=== PATIENT | female | born 1970 | race Caucasian/White ===

== ENCOUNTER 2019-10-01 10:42 | Emergency (ER) | payer BC ==
[~2019-10-01] VITALS: Ht 157.5 cm; Wt 150.6 kg
[~2019-10-01 10:42] MED LIST: ATORVASTATIN CA10 MG PO; BYDUREON P2 MG/0.65 SQ; FLONASE ALLERG9.9 ML NS; GLIPIZIDE ER2.5 MG PO; HYDROCHLOROTHIA25 MG PO; LASIX20 MG PO; MAG-OXIDE400 MG PO; METFORMIN HCL1000 MG PO; POTASSIUM CHLO20 ME2 PO; POTASSIUM99 M1 PO; SERTRALINE HCL50 MG PO; SUPER B COMPLE150 MG PO; VITAMIN D22000 UNIT PO; VITAMIN D250000 UNIT PO; VITAMIN E1000 UNI2 PO
[2019-10-01] MEDS ORDERED: DULOXETINE HCL60 MG PO (11:25)
[2019-10-01] MEDS ORDERED: LISINOPRIL5 MG PO (11:25)
[2019-10-01] MEDS ORDERED: TRULICITY1.5 MG/0.5 SQ (11:26)
[2019-10-01] MEDS ORDERED: CLINDAMYCIN HC300 MG PO (11:41)
== END 2019-10-01 11:59 | disposition home or self-care (01) ==
LOC: ED 10:42
DX: L03.311 Cellulitis of abdominal wall (principal); E11.9 Type 2 diabetes mellitus without complications; E78.00 Pure hypercholesterolemia, unspecified; Z88.2 Allergy status to sulfonamides; Z79.899 Other long term (current) drug therapy
CPT/HCPCS: 99283

== ENCOUNTER 2020-05-02 14:48 | Inpatient (IN) | payer BC ==
[~2020-05-02] VITALS: Ht 157.5 cm; Wt 145.6 kg
[~2020-05-02 14:48] MED LIST changes: +CLINDAMYCIN HC300 MG PO; +DULOXETINE HCL60 MG PO; +LISINOPRIL5 MG PO; +TRULICITY1.5 MG/0.5 SQ; +VITAMIN D210 MCG PO
[2020-05-02] MEDS ORDERED: LANTUS SOL100 UNIT/1 SUB-Q (15:43)
[2020-05-02] MEDS ORDERED: FUROSEMIDE40 MG PO (15:43)
--- NOTE | 2020-05-02 20:58 | NUR ---
PT ARRIVED TO FLOOR VIA STRETCHER PT ABLE TO STAND AND TRANSFER INTO BED. ADMISSION PROCESS COMPLETE. PT VERY TALKATIVE. PT ORIENTED TO ROOM AND POC FOR THIS SHIFT. PRIMARY RN IN ROOM BRIEFLY, FLUSHED IV LINES X 2, WNL. PT TOLERATED WELL. PT DENIES FURTHER NEEDS, CONCERNS, OR QUESTIONS AT THIS TIME. CALL LIGHT IN REACH. WHITE BOARD UDPATED.
--- NOTE | 2020-05-02 22:20 | NUR ---
PATIENT ATE FOUR LARGE PIECES OF CHEESE AND DRANK A GLASS OF WATER SO SHE COULD TAKE HER PO K+. BLOOD SUGAR WAS 183 SO 5UNITS HUMALOG AND 20UNITS LANTUS GIVEN SQ. PATIENT HAS A FULL BODY RASH, BUT RLE IS MORE SWOLLEN, REDDEND AND WARM. ALL PM MEDS GIVEN ALREADY, LUNGS ARE CLEAR, VS STABLE, PATIENT RESTING AT TIS TIME, CALL LIGHT IN REACH. IV'S INTACT AND FLUSH WELL.
--- NOTE | 2020-05-03 00:23 | NUR ---
PATIENT UP TO THE BATHROOM AND BACK TO BED AFTER VOIDING. CALL LIGHT IN REACH. NO OTHER NEEDS AT THIS TIME.
--- NOTE | 2020-05-03 02:02 | NUR ---
PATIENT RESTING QUIETLY SUPINE, EYES CLOSED, RESPIRATIONS REGULAR AND EVEN, CALL LIGHT IN REACH.
--- NOTE | 2020-05-03 02:10 | NUR ---
PATIENT'S VITAL SIGNS ARE STABLE AND PATIENT IS GOING BACK TO SLEEP. CALL LIGHT IN REACH.
--- NOTE | 2020-05-03 03:20 | NUR ---
CALL LIGHT ANSWERED. SBA TO THE BATHROOM. PATIENT IS BACK IN BED. ICE WATER REFILLED. NO OTHER NEEDS AT THIS TIME. CALL LIGHT IN REACH.
--- NOTE | 2020-05-03 03:53 | NUR ---
PATIENT WAS RESTING QUIETLY UNTIL I CAME IN TO DO ASSESSMENT AND HANG NEW IV FLUIDS AND ANTIBIOTCS. PATIENT IS TIRED AND JUST WANTS TO TRY AND GET SOME SLEEP. CALL LIGHT IS IN REACH AND PATIENT HAS NO NEEDS AT THIS TIME.
--- NOTE | 2020-05-03 06:00 | NUR ---
PATIENT HAS BEEN VERY TIRED THROUGH THE NIGHT AND FULL BODY RASH HAS BEEN RESOLVING SOME WHAT FROM HER KEFLEX REACTION. 1+ EDEMA STILL PRESENT IN RLE AND SOME GENERALIZED LLE SWELLING. PATIENT HAS BEEN GETTING UP WITH 1PSBA TO THE BATHROOM AND IS VOIDING WELL. BOTH AC IV'S AR PATENT AND FLUSH WELL. IV CONTINUES INFUSING AT 150MLS HOUR. PATIENT RESTING AT THIS TIME CALL LIGHT IN REACH.
[2020-05-03] MEDS ORDERED: CEPHALEXIN500 MG PO (07:04)
[2020-05-03] MEDS ORDERED: VITAMIN D350 MCG PO (07:26)
--- NOTE | 2020-05-03 07:42 | NUR ---
IV pump alarming distal occlusion. States some soreness to skin of right lower extremity. Assessment completed. Denies other needs at this time. IV sites WNL. Call light in reach, bed rails up X2.
--- NOTE | 2020-05-03 10:11 | NUR ---
Panus fold cleansed with soap and water, dried and Nystatin applied. Dry pillow cases placed in fold to absorb moisture. Patient denies other needs at this time. IV site to L hand infusing fluids without difficulty. Call light in reach, bed rails up X2.
--- NOTE | 2020-05-03 15:21 | NUR ---
Assessment completed. Ambulates to bathroom.
--- NOTE | 2020-05-03 16:16 | NUR ---
PATIENT UP IN HER CHAIR.
--- NOTE | 2020-05-03 16:17 | NUR ---
DID BLOOD SUGAR CHECK ON PATIENT BEFORE HER BREAKFAST ALSO SHE ORDERED HER BREAKFAST.
--- NOTE | 2020-05-03 19:24 | NUR ---
REPORT RECEIVED FROM DAY SHIFT RN. PT BACK TO BED FROM BR WITH SBA. GAIT STEADY. ALFONSO WELL. ALERT AND ORIENTED. IVF INFUSING. DENIES NEEDS AT THIS TIME. WHITE BOARD UPDATED. CALL LIGHT IN REACH.
--- NOTE | 2020-05-03 21:40 | NUR ---
EVENING ASSESSMENT COMPLETE. SCHEDULED MEDS ADMINISTERED PER EMAR. PT DENIES PAIN OR NAUSEA. RASH NOTED OVER WHOLE BODY. PANNUS AREA CLEANED, DRIED, AND NYSTATIN POWDER PLACED. PT UP TO BR WITH SBA TO VOID, GAIT STEADY. BACK TO BED, ALFONSO WELL. PT DENIES QUESTIONS OR CONCERNS. CALL LIGTH IN REACH.
--- NOTE | 2020-05-04 00:12 | NUR ---
SBA PATIENT TO THE BATHROOM. PATIENT IS BACK IN BED. THIS GERONTOLOGY AIDE ASSISTED RN TIFFANY CLEANED PATIENT'S LOWER ABDOMEN.
--- NOTE | 2020-05-04 02:51 | NUR ---
PT RESTING IN BED WITH EYES CLOSED. RESPIRATIONS EVEN AND UNLABORED. IVF INFUSING. CALL LIGHT IN REACH.
--- NOTE | 2020-05-04 03:26 | NUR ---
ASSISTED PT TO BATHROOM AND BACK. PT BACK IN BED. PT HAS NO NEEDS AT THIS TIME.
--- NOTE | 2020-05-04 04:47 | NUR ---
IV ABX INFUSING PER ORDER. PT DENIES PAIN OR NAUSEA. ASSESSMENT COMPLETE. PT DENIES NEEDS AT THIS TIME. CALL LIGHT IN REACH.
--- NOTE | 2020-05-04 05:57 | NUR ---
PT RESTING IN BED. VS AND I&O COMPLETE. IV ABX INFUSING. PT DENIES FURTHER NEEDS. CALL LIGHT IN REACH.
--- NOTE | 2020-05-04 07:40 | NUR ---
SHIFT REPORT FROM NURSE ALLEN. PT SLEEPING IN BED BUT AWOKE TO NURSES IN ROOM. PT ASSISTED UP TO TOILET. ENCOURAGED TO USE CALL LIGHT WHEN FINISHED.
--- NOTE | 2020-05-04 09:00 | NUR ---
PATIENT WITH STAFF. WILL RETURN LATER.
--- NOTE | 2020-05-04 09:10 | NUR ---
ASSESSMENT COMPLETE. PT REPORTS MINIMAL PAIN. SKIN PEELING, BLISTERED UNDER L BREAST. NYSTATIN POWDER APPLIED AFTER CLEANING UNDER PANUS. PT IS TALKATIVE AND ALERT AND IN GOOD SPIRITS DESPITE OVERALL INFLAMMATION. SKIN PEELING NOTED BEHIND RIGHT KNEE.
--- NOTE | 2020-05-04 10:54 | NUR ---
IV PUMP ALARMING. IV IN LEFT HAND WAS SLIGHTLY KINKED. ABLE TO REDIRECT AND FLUSH WITH 10ML NS. IVF INFUSING WNL.
--- NOTE | 2020-05-04 12:45 | NUR ---
SPOKE WITH PATIENT IN ROOM. PATIENT IS UP IN CHAIR EATING LUNCH WITHOUT ASSIST. PATIENT STATES SHE IS AMBULATORY USING NO DME. SHE DOES HAVE OXYGEN AT HOME SHE USES AT NIGHT WITH BIPAP. PATIENT DRIVES. SHE DENIES PROBLEMS GETTING TO APPOINTMENTS. SHE DOES STATES SHE IS CHANGING PCP TO DR LOAIZA AND NEW PATIENT APPT IS IN [place]. SHE LIVES WITH HER MOTHER. SHE PLANS AND FEELS SAFE TO RETURN THERE. DENIES WORRY ABOUT AFFORDING MEDS, FOOD OR UTILITIES. CM WILL FOLLOW NEEDED.
--- NOTE | 2020-05-04 13:10 | NUR ---
CHECKED IN ON PT. PT RETURNED TO BED AFTER LUNCH. RESTING PEACEFULLY. PT DENIES NEEDS AT THIS TIME
--- NOTE | 2020-05-04 13:32 | NUR ---
PT ALERT, ORIENTED AND SITTING IN CHAIR. PT STTED SHE FEELS THAT SHE IS HERE BECAUSE OF A REACTION TO MEDS. PT FEELS SLIGHT IMPROVEMENT, THANKED ME FOR COMING IN. JM [email or web address].POST WILL FOLLOW
--- NOTE | 2020-05-04 18:31 | NUR ---
ASSISTED PT BACK TO BED. ASSESSMENT COMPLETE. BLISTERS UNDER LEFT BREAST STILL PRESENT. SUPERFICIAL SKIN ON BACK OF RIGHT KNEE SLOUGHED. PT REPORTS MINIMAL PAIN. NO FURTHER NEEDS AT THIS TIME. CALL LIGHT WITHIN REACH
--- NOTE | 2020-05-04 19:15 | NUR ---
REPORT RECEIVED FROM DAY SHIFT RN. PT LYING IN BED ALERT AND ORIENTED. DENIES NEEDS AT THIS TIME. WHITE BOARD UPDATED. CALL LIGHT IN REACH.
--- NOTE | 2020-05-04 22:00 | NUR ---
EVENING ASSESSMENT COMPLETE. SCHEDULED MEDS ADMINISTERED PER EMAR. PT DENIES PAIN OR NAUSEA. UP TO BR WITH SBA TO BR. BACK TO BED, ALFONSO WELL. PANNUS AREA AND UNDER BREASTS CLEANED, DRIED, AND NYSTATIN APPLIED. CLUSTER OF BLISTERS NOTED ON THE INSIDE OF RIGHT THIGH. OPEN AREA BEHIND RIGHT KNEE NOTED, POSSIBLY FROM A BLISTER THAT HAD POPPED. WEEPING BLISTERS ALSO NOTED ON LEFT SIDE. IVF SL. NO QUESTIONS OR CONCERNS AT THIS TIME. CALL LIGHT IN REACH.
--- NOTE | 2020-05-04 23:50 | NUR ---
ASSISTED RN TIFFANY CLEAN PATIENT'S UNDER BREAST AND LOWER ABDOMEN.
--- NOTE | 2020-05-05 04:20 | NUR ---
PT UP TO BR WITH SBA TO VOID. GAIT STEADY. BACK TO BED, ALFONSO WELL. BLISTERS NOTED ON INSIDE OF LEFT THIGH WELL RIGHT, BOTH SIDES OOZING. IV ABX INFUSING PER ORDER. SL IN LEFT AC DC'D PER PT REQUEST. TIP INTACT.
--- NOTE | 2020-05-05 06:53 | NUR ---
PT REPORTS PAIN IN LEFT HAND WITH INFUSION. LEFT HAND SLIGHTLY SWOLLEN. IV DOES NOT APPEAR INFILTRATED BUT IS NO LONGER PATENT. IV DC'D WNL. TIP INTACT. LEFT HAND ELEVATED ON PILLOWS AND WRAPPED IN WARM BLANKET.
--- NOTE | 2020-05-05 07:20 | NUR ---
PT RESTING IN BED ALERT, REPORTS IV PAIN AT LEFT HAND WILL PLAN TO ROTATE IV SITES THIS AM.
--- NOTE | 2020-05-05 07:45 | NUR ---
PATIENT RESTING IN BED. RN IN ROOM. WITHE BOARD UPDATED. PATIENT'S HANDS AND FACE WASHED. CALL LIGHT WITHIN REACH. NO OTHER NEEDS AT THIS TIME
--- NOTE | 2020-05-05 09:08 | NUR ---
PATIENT RESTING IN BED. VITAL SIGNS AND I&O DONE. CALL LIGHT WITHIN REACH. NO OTHER NEEDS AT THIS TIME
--- NOTE | 2020-05-05 09:35 | NUR ---
PT IV CHANGED OUT BY ELAINE MOBLEY, PT THEN UP TO BATHROOM, THEN UP TO RECLINER FOR BREAKFAST. PT NOW BACK TO BED AT THIS TIME READING ON TABLET.
--- NOTE | 2020-05-05 10:00 | NUR ---
In and spoke with Dali. She states she feels safe going home. Her mother will come pick her up. She denies other needs.
--- NOTE | 2020-05-05 10:27 | NUR ---
PATIENT WAS MOSTLY INDEPENDENT IN SHOWER. FRESH LINEN AND GOWN GIVEN. FULLY DRIED AND POWDER APPLIED BY LEANDRA SAEZ. PATIENT NOW IN BED WATCHING TV. CALL LIGHT WITHIN REACH. NO FURTHER NEEDS AT THIS TIME.
--- NOTE | 2020-05-05 10:41 | NUR ---
PT SHOWERED WITH 'S APPROVAL, NYSTATIN POWDER APPLIED AFTER, PT BACK TO BED NOW.
--- NOTE | 2020-05-05 12:55 | NUR ---
ROUNDED FOR PT ASSESSMENT, HE FEELS PT NEEDS LONGER INPATIENT TREATMENT. PT RESTING IN BED WATCHING A PROGRAM ON HER TABLET. NO DISTRESS, NO REQUESTS AT THIS TIME.
--- NOTE | 2020-05-05 13:14 | NUR ---
PT ALERT, ORIENTED AND RESTING IN BED WATCHING TV. NOT MUCH SLEEP THOUGH. PT IS USED TO SLEEPING IN A CHAIR AT HOME. FEELS SOME IMPROVMENT IS HAPPENING. PT HOPES TO DC TODAY, GAVE BLESSING AND WILL FOLLOW
--- NOTE | 2020-05-05 14:11 | NUR ---
PATIENT RESTING IN BED. VITAL SIGNS AND I&O DONE. CALL LIGHT WITHIN REACH. NO OTHER NEEDS AT THIS TIME
--- NOTE | 2020-05-05 16:50 | NUR ---
PT UP IN CHAIR ON TELEPHONE, NO DISTRESS NOTED. REFILLED ICE WATER, SUPPER MED PASS COMPLETE NOW. VANCO INFUSING.
--- NOTE | 2020-05-05 19:39 | NUR ---
REPORT RECEIVED FROM DAY SHIFT RN. PT LYING IN BED ALERT AND ORIENTED WATCHING TV. DENIES NEEDS AT THIS TIME. WHITE BOARD UPDATED. CALL LIGHT IN REACH.
--- NOTE | 2020-05-05 21:25 | NUR ---
ASSISTED LEANDRA ALLEN. CLEANED PATIENT'S UNDERBREAST AND LOWER ABDOMEN.
--- NOTE | 2020-05-05 21:50 | NUR ---
EVENING ASSESSMENT COMPLETE. SCHEDULED MEDS ADMINISTERED PER EMAR. PT DENIES PAIN OR NAUSEA. BLISTERS ON BILAT INNER THIGHS WEEPING. PANNUS AREA AND UNDER BREASTS CLEANED, DRIED, AND NYSTATIN POWDER APPLIED. VS AND I&O COMPLETE. NO FURTHER NEEDS AT THIS TIME. CALL LIGHT IN REACH.
--- NOTE | 2020-05-06 00:22 | NUR ---
PT RESTING IN BED WITH EYES CLOSED, NAD.
--- NOTE | 2020-05-06 02:45 | NUR ---
PT RESTING IN BED WITH EYES CLOSED. RESPIRATIONS EVEN AND UNLABORED.
--- NOTE | 2020-05-06 05:10 | NUR ---
IV FLUSHED AND PATENT. ABX INFUSING PER ORDER. UP TO BR WITH MINIMAL SBA. GAIT STEADY. ASSISTED WITH SANJAY CARE. BACK TO BED, ALFONSO WELL. ASSESSMENT COMPLETE. FRESH WATER PROVIDED. NO FURTHER NEEDS. CALL LIGHT IN REACH.
--- NOTE | 2020-05-06 06:55 | NUR ---
BEDSIDE HANDOFF REPORT RECEIVED FROM FRAME MAKER RN. PT SLEEPING, LEFT UNDSITURBED.
--- NOTE | 2020-05-06 08:00 | NUR ---
PATIENT SLEEPING. WHITE BOARD UPDATED. CALL LIGHT WITHIN REACH. NO OTHER NEEDS AT THIS TIME
--- NOTE | 2020-05-06 09:23 | NUR ---
PATIENT SITTING UP IN CHAIR. VITAL SIGNS AND I&O DONE. ICE WATER GIVEN. CALL LIGHT WITHIN REACH. NO OTHER NEEDS AT THIS TIME
--- NOTE | 2020-05-06 09:30 | NUR ---
Spoke with Dali, feels better, but rash continues. No change in dc plan.
--- NOTE | 2020-05-06 09:50 | NUR ---
PT IN BATHROOM, VOIDED AND HAD SOFT BM, ASSISTED WITH PERICARE. PT ALERT AND ORIENTED. PT ON ROOM AIR, LUNG SOUNDS CLEAR, DENIES SOB. PT WITH DIFFUSE RASH, ONPEN BLISTERS ON POSTERIOR RIGHT KNEE, LEFT AND RIGHT INNER THIGHS. PT TOLERATED BREAKFAST, GOOD APPETITE, SS INSULIN HELD. IV SALINE LCOKED. PT WITH EDEMA TO RIGHT LEG 2+, LEFT LEG 1+. PT PROVIDED WITH FREH WATER, DENIES OTHER NEEDS AT THIS TIME.
[2020-05-06] MEDS ORDERED: DOXYCYCLINE HY100 MG PO (11:49)
[2020-05-06] MEDS ORDERED: LANTUS SOL100 UNIT/1 SUB-Q (11:50)
[2020-05-06] MEDS ORDERED: PREDNISONE20 MG PO (11:51)
--- NOTE | 2020-05-06 12:00 | NUR ---
PT GIVEN 3 UNITS SS HUMALOG FOR BLOOD GLUCOSE 157. PT SITTING IN CHAIR, EATING LUNCH. PT ANTICIPATING DC.
--- NOTE | 2020-05-06 13:25 | NUR ---
Vancomycin trough level = 18.3. Change dose to 1750mg IV q 8 hrs to avoid overshooting goal trough level
--- NOTE | 2020-05-06 13:31 | NUR ---
DISCHARGE INSTRUCTIONS COMPLETED WITH PT. VSS. IV CATH RMEOVED. ALLEVYN DRESSING APPLIED TO RIGHT INNER THIGH BLISTER SITE TO MANAGE DRAIANGE, PT SENT HOME WITH DRESSINGS AND DISCUSSED WOUND CARE. PT GETTING DRESSED AND WILL CALL WHEN READY FOR DISCHARGE.
== END 2020-05-06 13:55 | disposition home or self-care (01) | DRG 872 ==
LOC: ED 14:48 → MS 18:36
PROVIDERS: ADMIT Internal Medicine; ATTEND Internal Medicine
DX: A41.9 Sepsis, unspecified organism (principal); L03.115 Cellulitis of right lower limb; Z68.43 Body mass index [BMI] 50.0-59.9, adult; I50.32 Chronic diastolic (congestive) heart failure; R65.20 Severe sepsis without septic shock; Z20.828 Contact with and (suspected) exposure to other viral communicable diseases; E11.9 Type 2 diabetes mellitus without complications; E66.9 Obesity, unspecified; E78.5 Hyperlipidemia, unspecified; I11.0 Hypertensive heart disease with heart failure; G47.33 Obstructive sleep apnea (adult) (pediatric); F39 Unspecified mood [affective] disorder; L27.0 Generalized skin eruption due to drugs and medicaments taken internally; T36.1X5A Adverse effect of cephalosporins and other beta-lactam antibiotics, initial encounter; Z88.2 Allergy status to sulfonamides; Z88.1 Allergy status to other antibiotic agents; Z79.899 Other long term (current) drug therapy; Z79.4 Long term (current) use of insulin
CPT/HCPCS: 36415; 80048; 80053; 80202; 83036; 83605; 83735; 85007; 85025; 85032; 87040; 96365; 96366; 99285-25; C9803; J1650; J1815; J3370; J3475; J7030; J7060; J7121; J7512; U0003

== ENCOUNTER 2020-10-09 22:34 | Emergency (ER) | payer SELFPAY ==
[~2020-10-09] VITALS: Ht 157.5 cm; Wt 140.6 kg
[~2020-10-09 22:34] MED LIST changes: +CEPHALEXIN500 MG PO; +DOXYCYCLINE HY100 MG PO; +FUROSEMIDE40 MG PO; +LANTUS SOL100 UNIT/1 SUB-Q; +PREDNISONE20 MG PO; +VITAMIN D350 MCG PO
--- OUTSIDE RECORDS SUMMARY | 2020-10-09 22:40 | XMS ---
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 Jamar has no Care Guidelines for this patient. [facility] VISIT COUNT (12 MO.) 2 [facility] TOTAL 2 NOTE: Visits indicate total known visits. ED/C VISIT TRACKING (12 MO.) 10/09/2020 22:35 [facility] TYPE: Emergency COMPLAINT: - PAIN 05/02/2020 14:50 [facility] TYPE: Emergency COMPLAINT: - MEDICATION REACTION INPATIENT VISIT TRACKING (12 MO.) 05/02/2020 18:36 [facility] TYPE: Medical Surgical COMPLAINT: - SEVERE SEPSIS DIAGNOSES: - Type 2 diabetes mellitus without complications - Unspecified mood [affective] disorder - Obstructive sleep apnea (adult) (pediatric) - Adverse effect of cephalosporins and other beta-lactam antibiotics, initial encounter - Type 2 diabetes mellitus without complications - Allergy status to other antibiotic agents - Body mass index [BMI] 50.0-59.9, adult - Allergy status to sulfonamides - Severe sepsis without septic shock - Contact with and (suspected) exposure to other viral communicable diseases - Hypertensive heart disease with heart failure - Allergy status to other antibiotic agents - Chronic diastolic (congestive) heart failure - Allergy status to sulfonamides - Body mass index [BMI] 50.0-59.9, adult - oil heaterman (current) use of insulin - Cellulitis of right lower limb - Chronic diastolic (congestive) heart failure - Adverse effect of cephalosporins and other beta-lactam antibiotics, initial encounter - Other senior care (current) drug therapy - Hyperlipidemia, unspecified - Body mass index [BMI] 50.0-59.9, adult - Unspecified mood [affective] disorder - Allergy status to other antibiotic agents - Generalized skin eruption due to drugs and medicaments taken internally - Contact with and (suspected) exposure to other viral communicable diseases - Hyperlipidemia, unspecified - Severe sepsis without septic shock - oil heaterman (current) use of insulin - Obesity, unspecified - Obesity, unspecified - Obstructive sleep apnea (adult) (pediatric) - Allergy status to sulfonamides - Generalized skin eruption due to drugs and medicaments taken internally - Sepsis, unspecified organism - Hypertensive heart disease with heart failure - Cellulitis of right lower limb - Other exterminator helper termite (current) drug therapy [email or web address]
[2020-10-10] MEDS ORDERED: DOXYCYCLINE HY100 MG PO (00:47)
== END 2020-10-10 01:05 | disposition home or self-care (01) ==
LOC: ED 22:34
DX: L30.4 Erythema intertrigo (principal); L03.311 Cellulitis of abdominal wall; E11.9 Type 2 diabetes mellitus without complications; E78.00 Pure hypercholesterolemia, unspecified; I10 Essential (primary) hypertension; Z88.1 Allergy status to other antibiotic agents; Z88.2 Allergy status to sulfonamides; Z79.4 Long term (current) use of insulin; Z79.899 Other long term (current) drug therapy
CPT/HCPCS: 80053; 85025; 99283

== ENCOUNTER 2021-05-28 11:33 | Emergency (ER) | payer OTHER ==
[~2021-05-28] VITALS: Ht 157.5 cm; Wt 140.6 kg
[2021-05-28] MEDS ORDERED: JARDIANCE10 MG PO (13:31)
[2021-05-28] MEDS ORDERED: HYDROCODON-ACE1 EA11 PO (16:16)
== END 2021-05-28 17:07 | disposition home or self-care (01) ==
LOC: ED 11:33
DX: S42.302A Unspecified fracture of shaft of humerus, left arm, initial encounter for closed fracture (principal); E11.9 Type 2 diabetes mellitus without complications; E78.00 Pure hypercholesterolemia, unspecified; I10 Essential (primary) hypertension; Z88.1 Allergy status to other antibiotic agents; Z88.2 Allergy status to sulfonamides; Z79.4 Long term (current) use of insulin; Z79.899 Other long term (current) drug therapy; Z79.84 Long term (current) use of oral hypoglycemic drugs; W18.39XA Other fall on same level, initial encounter; Y99.0 Civilian activity done for income or pay
CPT/HCPCS: 73060; 73560; 99283-25; A9270